=== PATIENT | male | born 1965 | race Caucasian/White ===

== ENCOUNTER 2017-03-01 09:29 | Day surgery (SDC) | payer BC ==
--- NOTE | 2017-02-28 13:53 | HP ---
CC: Shawn Min MD; Wesly Vivas MD * ATTENDING HISTORY AND PHYSICAL: DATE OF ADMISSION: 03/01/17 ADMITTING DIAGNOSES: 1. Calculus, right ureter. 2. Right hydronephrosis. PLANNED PROCEDURE: Right ureteroscopy, possible laser and stent insertion. SURGEON: Wesly Vivas MD. HISTORY OF PRESENT ILLNESS: Cody Rodriguez is a 51-year-old gentleman with a history of recurrent renal and ureteral calculi. He was evaluated for right flank pain, nausea, and chills and noted to have an approximately 7-mm calculus in the right distal ureter with mild right hydronephrosis. He was given the option of trying alpha blockers for conservative management for medical expulsive therapy, but because of the degree of discomfort, would like to proceed with a right ureteroscopy. PAST MEDICAL HISTORY: Significant for: 1. Renal calculi. 2. Depression, anxiety, and obsessive compulsive disorder. MEDICATIONS ON ADMISSION: 1. Lorazepam 0.5 mg t.i.d. 2. Oxcarbazepine 1 tablet 3 times a day. 3. Fluvoxamine 100 mg 2 tablets at bedtime. 4. Percocet p.r.n. ALLERGIES: No known drug allergies. REVIEW OF SYSTEMS: He denies any chest pain or shortness of breath. There is no history of diabetes mellitus or any other major systemic illness. PHYSICAL EXAMINATION GENERAL: Reveals a pleasant uncomfortable-appearing gentleman. VITAL SIGNS: Blood pressure is 162/100, pulse 71 per minute and regular, temperature 98.4, oxygen saturation 98% on room air. LUNGS: Clear bilaterally. CARDIOVASCULAR: Regular rate and rhythm. S1 and S2. ABDOMEN: Soft with right flank tenderness. LABORATORY DATA: Ultrasound revealed an approximately 7-mm calculus in the right distal ureter with right hydronephrosis and mild surrounding edema. IMPRESSION: A 51-year-old gentleman with right flank pain, chills and nausea. Planned procedure is right ureteroscopy, possible laser and stent insertion. [id number]/[facility] #: [id number] MTDD
[~2017-03-01 09:29] MED LIST: Buffered Lidocaine 0.9% SYRIN* 5 ML/SYR SYRINGE INTRADERM ONE; Buffered Lidocaine 0.9% SYRIN* 5 ML/SYR SYRINGE ONE; Dexamethasone IV* 4 MG/ML 1 ML (4 MG) IV SLOW PU ONE; Dexamethasone IV* 4 MG/ML 1 ML (4 MG) ONE; Famotidine IV* 10 MG/ML 2 ML (20 mg) IV ONE; Famotidine IV* 10 MG/ML 2 ML (20 mg) ONE; cefTRIAXone(*) 2 GM ADDV.VIAL IVPB ONE
[2017-03-01] MEDS ORDERED: Iohexol 180 (CONTRAST) 10 ML SDV IV ONE (10:22)
--- NOTE | 2017-03-01 10:23 | RAD ---
HISTORY: Kidney stones COMPARISONS: November 09, 2016 VIEWS: Frontal views of the abdomen. FINDINGS: BOWEL: There is a nonspecific bowel gas pattern, with nondilated small bowel gas noted. CALCULI: There are calculi overlying the renal parenchymal shadow as bilaterally measuring up to 0.5 cm on the left and 0.3 cm on the right. On the right, these are stable. BONES AND SOFT TISSUES: Mild degenerative changes are noted OTHER FINDINGS: The lung bases are clear. There is no subphrenic gas. IMPRESSION: BILATERAL NEPHROLITHIASIS
[2017-03-01] MEDS ORDERED: fentaNYL* 50 MCG/ML 2 ML VIAL (100 MCG VIAL) ONE ×2 (10:29→10:51)
[2017-03-01] MEDS ORDERED: Midazolam* 1 MG/ML 5 ML VIAL (5 MG) ONE (10:29)
[2017-03-01] MEDS ORDERED: Lidocaine 2% PF * 5 ML VIAL ONE (10:41)
[2017-03-01] MEDS ORDERED: Propofol* 10 MG/ML 20 ML BTL IV PUSH ONE ×2 (10:41→10:50)
[2017-03-01] MEDS ORDERED: Ondansetron INJ* 2 MG/ML VIAL ONE (11:03)
[2017-03-01] MEDS ORDERED: HYDROcodone/ACETAMIN 5-325 MG* 1 TAB PO PRN (11:15)
[2017-03-01] MEDS ORDERED: fentaNYL* 50 MCG/ML 2 ML VIAL (100 MCG VIAL) IV PRN (11:15)
[2017-03-01] MEDS ORDERED: oxyCODONE/Acetamin 5/325 MG* TAB PO PRN (11:15)
[2017-03-01] MEDS ORDERED: PROCHLORPERAZINE INJ 5 MG/ML 2 ML VIAL IV PRN (11:15)
--- NOTE | 2017-03-01 11:50 | RAD ---
INDICATION: Right stent insertion COMPARISONS: None relevant TECHNIQUE: Fluoroscopy was provided for a retrograde pyelogram and stent placement. Total fluoroscopy time is: 5 seconds FINDINGS: Contrast is noted within the right renal collecting system. A ureteral stent is noted. IMPRESSION: FLUOROSCOPY WAS PROVIDED FOR A RETROGRADE PYELOGRAM AND STENT PLACEMENT CPT II Codes: 6045F
[2017-03-01] MEDS ORDERED: Tamsulosin CAP* 0.4 MG ONE (12:15)
[2017-03-01 12:57] VITALS: BP 125/86
--- NOTE | 2017-03-01 13:17 | RAD ---
INDICATION: Right ureteral stent insertion. COMPARISON: Comparison is made with a prior KUB series from March 01, 2017. TECHNIQUE: Frontal supine films of the abdomen were obtained. FINDINGS: The small bowel and colon appear nondistended. There is a double-J stent ureteral catheter present on the right side which demonstrates normal course. There are several surgical clips in the right lower quadrant. IMPRESSION: STATUS POST RIGHT SIDED DOUBLE-J STENT CATHETER PLACEMENT.
--- NOTE | 2017-03-01 15:32 | OP ---
DATE OF OPERATION: 03/01/17 [facility] DATE OF : 63 SURGEON: Wesly Vivas MD. ANESTHESIOLOGIST: Dr. Linh Coley. ANESTHESIA: General. PRE-OP DIAGNOSES: 1. Calculus right ureter. 2. Right hydronephrosis. POST-OP DIAGNOSES: 1. Calculus right ureter. 2. Right hydronephrosis. SURGICAL PROCEDURE: Cystoscopy, right retrograde pyelogram, right ureteroscopy and stone extraction and right stent insertion. INDICATION: Cody Rodriguez is a 51-year-old gentleman with a history of recurrent bilateral renal calculi. He was recently evaluated for right flank pain, nausea and chills and noted to have a calculus in the right distal ureter. He was given the option of trying conservative management with alpha blockers, but because of the degree of discomfort, wished to proceed with right ureteroscopy. OPERATIVE FINDINGS: Approximately 7 to 8 mm irregular sharp-edged calculus in right distal ureter with mild right hydronephrosis. COMPLICATIONS: None. POSTOPERATIVE CONDITION: Stable. STENT USED: A 6-Malaysian stent, right ureter. DESCRIPTION OF PROCEDURE: After induction of general anesthesia, the patient was placed in dorsal lithotomy position, sequential compression devices were in place and functioning. Initial cystoscopy revealed a normal-appearing urethra, a mildly enlarged prostate. The bladder was examined. There was mild edema noted surrounding the right orifice. A guidewire was introduced into the right ureter. Retrograde pyelogram revealed fullness of the right collecting system and proximal right ureter. A 6-Malaysian semi-rigid ureteroscope was introduced and advanced under direct vision. Just above the ureterovesical junction, a 7 to 8 mm sharp-edged calculus was noted with some surrounding inflammatory response. Using a 3-pronged grasper, this was engaged and broken to multiple pieces. All of the pieces were successfully retrieved into the bladder and then brought out from the bladder later. The ureteroscope was advanced to the level of the proximal ureter and a small fragment was noted in the mid ureter which was also retrieved. A 6-Malaysian stent was introduced and positioned under fluoroscopy with good proximal and distal positioning obtained. The patient tolerated the procedure satisfactorily and was transferred back to the recovery area in stable condition. [id number]/[facility] #: [id number] [facility]
== END 2017-03-01 12:59 | disposition home or self-care (01) ==
LOC: OR 09:29
PROVIDERS: ATTEND Urology
DX: N13.2 Hydronephrosis with renal and ureteral calculous obstruction (principal)
CPT/HCPCS: 74000; 74420; 82365; 88300; C1876; J0696; J1100; J1580; J2250; J2405; J2704; J3010